=== PATIENT | female | born 2005 | race Caucasian/White ===

== ENCOUNTER 2024-03-20 06:20 | Day surgery (SDC) | payer OTHER, SELFPAY ==
[2024-03-20] VITALS (12 sets, daily range): BP systolic 108–131; BP diastolic 64–86; BMI 20.6
[2024-03-20 10:58] LABS: HCG, Urine Qualitative Screen Negative
[2024-03-20] MEDS: NORMOSOL-R 1000 IV (11:11)
[2024-03-20] MEDS: DILAUDID 0.25 MG IV (13:10)
== END 2024-03-20 14:20 | disposition home or self-care (01) ==
LOC: SDS 06:20
PROVIDERS: ATTENDING PHYSICIAN Otolaryngology
DX: J35.1 Hypertrophy of tonsils (principal); J03.91 Acute recurrent tonsillitis, unspecified
CPT/HCPCS: 42826; 88304; 81025

== ENCOUNTER 2024-03-25 04:12 | Emergency (ER) | payer OTHER, SELFPAY ==
[2024-03-25 04:14] VITALS: BP 114/86
--- NOTE | 2024-03-25 04:27 | ED.GENMED ---
History of Present Illness
<JER Baltazar - Last Filed: 03/25/24 05:56>
General
Chief Complaint: Post Operative Problem(s)
Source: family (pt's father )
Exam Limitations: clinical condition (pt non-verbal following recent BL tonsillectomy )
Time Seen by Provider: 03/25/24 04:27
Nursing documentation reviewed up to this point in time: agreed with
History of Present Illness
History of Present Illness:
18 year old female presents for evaluation of a post operative problem. Pt underwent BL tonsillectomy on 03/20 having difficulty speaking due to post-op pain so father is providing history today. Father notes that pt began exhibiting intermittent
spotty oral bleeding approximately 3 hours ago. Pt has been avoiding swallowing due to pain, so father reports that when pt spits she has been exhibiting blood-streaked sputum. Father also endorses decreased oral intake since pt's surgery, and adds
that pt is mildly dehydrated as a result. Pt currently on Amoxicillin following the procedure. No fever, chills, N/V, lightheadedness/dizziness, syncope, SOB, or CUTLER.
Review of Systems
<JER Baltazar - Last Filed: 03/25/24 05:56>
Review of Systems
Allergies reviewed?: Yes
Constitutional: Reports no symptoms
EENT: Reports sore throat, mouth pain and other (intermittent bleeding from BL tonsillectomy surgical site )
Respiratory: Reports no symptoms
Cardiac: Reports no symptoms
ABD/GI: Reports no symptoms
Musculoskeletal: Reports no symptoms
Skin: Reports no symptoms
Neurological: Reports no symptoms
Hematologic/Lymphatic: Reports bleeding
Phy Exam
<JER Baltazar - Last Filed: 03/25/24 05:56>
General Physical Exam
General Presentation: well appearing
General age: appears stated age
General Skin: warm
General Habitus: normal
General Mental: alert
General Hydration: dry mucous membranes
ENT Exam
ENT Exam: EOMI, neck supple, pharyngeal erythema and other (pain with swallowing )
Cardiovascular Exam
Cardiovascular Exam: regular rate/rhythm
Pulmonary Exam
Pulmonary Exam: lungs clear and no respiratory distress
Neurological Exam
Neurological Exam: alert and oriented x3
Musculoskeletal Exam
Musculoskeletal Exam: other (no neck pain )
Skin Exam
Skin Exam: normal color
Course
<JER Baltazar - Last Filed: 03/25/24 05:56>
Orders/Labs/Results
Orders:
Orders
03/25/24 04:54
0.9% Sodium Chloride 1000 ml [Nss] 1,000 ml IV BOLUS
03/25/24 05:01
Complete Blood Count/With Diff Stat
Comprehensive Metabolic Panel Urgent
Abnormal Lab Results
03/25/24
05:01
MCH 31.9 H pg
(27.0-31.0)
Absolute Monos (auto) 0.7 H 10^3/uL
(0.1-0.6)
Monocytes % 11.5 H %
(1.7-9.3)
BUN 18 H mg/dl
(7-17)
Glucose 112 H mg/dl
(70-99)
03/25/24 05:01
03/25/24 05:01
Vital Signs
Initial and Last Documented VS:
Initial Vital Signs
Temp Pulse Resp BP Pulse Ox
99 F 148 24 114/86 98
03/25/24 04:14 03/25/24 04:14 03/25/24 04:14 03/25/24 04:14 03/25/24 04:14
Last Documented Vital Signs
Temp Pulse Resp BP Pulse Ox
99 F 148 24 114/86 98
03/25/24 04:14 03/25/24 04:14 03/25/24 04:14 03/25/24 04:14 03/25/24 04:33
<Roger Barroso DO - Last Filed: 03/25/24 05:37>
Orders/Labs/Results
Orders:
Orders
03/25/24 04:54
0.9% Sodium Chloride 1000 ml [Nss] 1,000 ml IV BOLUS
03/25/24 05:01
Complete Blood Count/With Diff Stat
Comprehensive Metabolic Panel Urgent
Abnormal Lab Results
03/25/24
05:01
MCH 31.9 H pg
(27.0-31.0)
Absolute Monos (auto) 0.7 H 10^3/uL
(0.1-0.6)
Monocytes % 11.5 H %
(1.7-9.3)
BUN 18 H mg/dl
(7-17)
Glucose 112 H mg/dl
(70-99)
03/25/24 05:01
03/25/24 05:01
Vital Signs
Initial and Last Documented VS:
Initial Vital Signs
Temp Pulse Resp BP Pulse Ox
99 F 148 24 114/86 98
03/25/24 04:14 03/25/24 04:14 03/25/24 04:14 03/25/24 04:14 03/25/24 04:14
Last Documented Vital Signs
Temp Pulse Resp BP Pulse Ox
99 F 148 24 114/86 98
03/25/24 04:14 03/25/24 04:14 03/25/24 04:14 03/25/24 04:14 03/25/24 04:33
<JER Baltazar - Last Filed: 03/25/24 05:56>
MDM/Problems Addressed
Differential Diagnosis Includes:
Post-operative hemorrhage following tonsillectomy
<JER Baltazar - Last Filed: 03/25/24 05:56>
*Critical Care Note
Total Time (30-74mins, 75-104mins- exclusive of procedures): Not Applicable
ED Attending Note
<JER Baltazar - Last Filed: 03/25/24 05:56>
-
Portions of this chart may have been created with voice recognition software.� Occasional wrong word or��sound alike� substitutions may have occurred due to the inherent limitations of voice recognition software.
<Roger Barroso DO - Last Filed: 03/25/24 05:37>
ED Attending Note
Patient seen and examined by attending physician: Yes
I performed the substantive portion of visit, reviewed & personally made and approve the management plan that is documented in note by myself or LAWRENCE.: Yes
ED Attending Note:
Pleasant 18-year-old female on day 6 status post tonsillectomy by Dr. Isaacs had some bleeding tonight. She states that the bleeding slowed down by the time she got here. She was having difficulty drinking. Patient has refused pain medication.
Father reports some spotty blood on expiratory wheezing. Currently patient has no other complaints. She is on amoxicillin. Patient was seen in conjunction with the PA student. I have reviewed and agree with the history and treatment plan
presented. On my independent physical exam, patient is awake, alert, and oriented x3, minimal acute distress. Oropharynx is clear. There is some bright red blood on the tonsillar pillars. There is some scarring and scabbing present. There is no
active extravasation. Patient refuses pain medication. Patient to be discharged home.
Discharge Plan
Departure
Patient Disposition: Home (Routine Discharge)
Date of Disposition: 03/25/24
Time of Disposition: 05:36
Patient with high blood pressure during this ER visit?: Yes
Discharge Problem:
Postoperative hemorrhage of tonsil
Instructions: Bleeding After Surgery
Prescriptions:
No Action
acetaminophen [Tylenol] 325 mg Tablet
650 mg PO Q4H PRN (Reason: discomfort)
albuterol sulfate 90 mcg/actuation Hfa Aerosol Inhaler
1 inh INHALATION PRN PRN (Reason: asthma)
cetirizine [Zyrtec] 10 mg Tablet
10 mg PO DAILY PRN (Reason: allergies)
diphenhydramine HCl [Benadryl] 25 mg Capsule
25 mg PO TID PRN (Reason: allergies)
Referrals:
Manoj Hayes MD [Active] - Keep scheduled appt
Soni Goetz CRNP [Family Provider] -
Interventions
Interventions:
*Risk Screen - Suicide Last Done: 03/25/24 04:14
*General Assessment Last Done: 03/25/24 04:33
*Neglect/Abuse Screening Last Done: 03/25/24 04:14
ED- Fall Risk Assessment Last Done: 03/25/24 04:33
*ED COVID-19 Vaccine History Last Done: 03/25/24 04:33
ED-EENT Assessment Last Done: 03/25/24 04:33
ED- Pulmonary Assessment Last Done: 03/25/24 04:33
ED-Skin Assessment Last Done: 03/25/24 04:33
Discharge Date and Time
Print Language: [id number]
[2024-03-25] MEDS: NSS 1000 IV (04:55)
[2024-03-25 05:13] LABS: % Basophils 0.5 % (0-2); % Eosinophils 3.9 % (0-6); % Immature Granulocytes 0.2 % (0-0.5); % Lymphocytes 21.1 % (20.5-51.1); % Monocytes 11.5 % (1.7-9.3); % Neutrophils 62.8 % (42.2-75.2); Absolute Eosinophils 0.3 10^3/uL (0-0.7); Absolute Lymphocytes 1.4 10^3/uL (1.2-3.4); Absolute Monocytes 0.7 10^3/uL (0.1-0.6); Absolute Neutrophils 4.1 10^3/uL (1.4-6.5); Hematocrit 38.5 % (37.0-47.0); Hemoglobin 13.7 g/dL (12.0-16.0); Mean Corp Hgb Conc. 35.6 g/dL (33.0-37.0); Mean Corpuscular Hgb 31.9 pg (27.0-31.0); Mean Corpuscular Volume 89.5 fL (81.0-99.0); Mean Platelet Volume 10.1 fL (7.4-10.4); Nucleated Red Blood Cells % 0 %; Platelet Count 257 10^3/uL (130-400); Red Cell Dist. Width 11.7 % (11.5-14.5); White Blood Cell Count 6.4 10^3/uL (4.8-10.8)
[2024-03-25 05:29] LABS: ALT (SGPT) 11 U/L (0-35); AST (SGOT) 19 U/L (14-36); Albumin 4.9 g/dl (3.5-5.0); Alkaline Phosphatase 73 U/L (38-126); Blood Urea Nitrogen 18 mg/dl (7-17); Calcium 10.2 mg/dl (8.4-10.2); Carbon Dioxide 24 mmol/L (22-30); Chloride 102 mmol/L (98-107); Glucose 112 mg/dl (70-99); Sodium 143 mmol/L (135-145); Total Protein 7.9 g/dl (6.3-8.2); eGFR > 60.00
[2024-03-25 06:00] VITALS: BP 117/79
== END 2024-03-25 06:00 | disposition home or self-care (01) ==
LOC: EMR 04:12
PROVIDERS: EMERGENCY PHYSICIAN Student in an Organized Health Care Education/Training Program; FAMILY PHYSICIAN Nurse Practitioner
DX: K91.841 Postprocedural hemorrhage of a digestive system organ or structure following other procedure (principal); Z79.2 Long term (current) use of antibiotics; Z85.72 Personal history of non-Hodgkin lymphomas
CPT/HCPCS: 99283; 96360; 80053; 85025

== ENCOUNTER 2024-03-26 14:31 | Day surgery (SDC) | payer OTHER, SELFPAY ==
[2024-03-26] VITALS (12 sets, daily range): BP systolic 103–140; BP diastolic 64–82; BMI 19.0
--- NOTE | 2024-03-26 13:46 | EDRN ---
the pt was brought back to ED Bed 11 from triage, after the triage nurse asked her questions she coughed and then started to cough up blood, the pt is AAO, the pt is tearful, pt being hooked to the monitor, Dr. Perez, Rock Combs, and Dr. Tabor brought
to the pts bedside
--- NOTE | 2024-03-26 13:48 | EDRN ---
the pt continues to cough up blood, PIV being placed, labs being drawn
--- NOTE | 2024-03-26 13:52 | EDRN ---
OR being notified of the pt, Dr. Perez currently still at the pts bedside, NST in the 120-140's, the pt is currently on 5L NC Sp02 99%, anesthesia paged and at the bedside as well as respiratory
[2024-03-26 13:55] LABS: % Basophils 0.4 % (0-2); % Eosinophils 1.2 % (0-6); % Immature Granulocytes 0.4 % (0-0.5); % Lymphocytes 11.5 % (20.5-51.1); % Monocytes 8.4 % (1.7-9.3); % Neutrophils 78.1 % (42.2-75.2); Absolute Basophils 0.1 10^3/uL (0-0.2); Absolute Eosinophils 0.2 10^3/uL (0-0.7); Absolute Immature Granulocytes 0.1 10^3/uL (0-0.05); Absolute Monocytes 1.4 10^3/uL (0.1-0.6); Absolute Neutrophils 13.3 10^3/uL (1.4-6.5); Hematocrit 37.7 % (37.0-47.0); Hemoglobin 13.1 g/dL (12.0-16.0); Mean Corp Hgb Conc. 34.7 g/dL (33.0-37.0); Mean Corpuscular Hgb 31.3 pg (27.0-31.0); Nucleated Red Blood Cells % 0 %; Platelet Count 378 10^3/uL (130-400); Red Blood Cell Count 4.19 10^6/uL (4.20-5.40); Red Cell Dist. Width 11.9 % (11.5-14.5); White Blood Cell Count 17.1 10^3/uL (4.8-10.8)
[2024-03-26] MEDS: TRANEXAMIC ACID 100 IV (13:55)
[2024-03-26] MEDS: NSS 1000 IV (13:56)
--- NOTE | 2024-03-26 13:56 | EDRN ---
the pt is currently still on 5L NC Sp02 99%, the pt is AAO, the pt is pale with c/o dizziness, IVF hung and running along with TXA IV running, VS WNL, HR still in the 110's
--- NOTE | 2024-03-26 13:57 | EDRN ---
when in triage it was noted that the pt coughed up a total of 250cc of blood so far, provider aware
[2024-03-26] MEDS: TRANEXAMIC ACID 1000 MG INH (13:58)
--- NOTE | 2024-03-26 13:58 | EDRN ---
pt receiving TXA inhalation, now, mouth being suctioned with yankauer, the pt is currently still AAO, able to answer questions appropriately, the pts father is currently still at the pts bedside
--- NOTE | 2024-03-26 14:03 | EDRN ---
the OR called this RN to receive report, this RN gave the OR verbal report, the pt was undressed and placed in a gown and belongings were placed in belongings bag
--- NOTE | 2024-03-26 14:06 | ED.GENMED ---
History of Present Illness
General
Chief Complaint: Post Operative Problem(s)
Source: patient and family
Exam Limitations: none
Time Seen by Provider: 03/26/24 14:05
History of Present Illness
History of Present Illness:
Patient with a tonsillectomy done March 20. Has had some intermittent mild post tonsillar bleeding but became severe today and very severe in the waiting room. No other medical issues.
Past History
Past History
ED Past Medical History: Asthma
ED Past Surgical History: Tonsilectomy and Other ([place] teeth)
Review of Systems
Review of Systems
All Other Systems: Not applicable
Constitutional: Denies fever
Phy Exam
Physical Exam
Physical Exam:
GENERAL: Alert. Pale. Tachycardic. Holding an emesis bag with significant blood and clots in the emesis and in her oral airway. Some drooling. No stridor.
EYE: Orbits normal.
NECK: Supple
ENT: Diffuse intraoral blood and clots.
CARDIAC: Tachycardic and regular no murmur
LUNGS: Clear breath sounds,normal
NEUROLOGICAL: Alert and oriented , grossly non-focal
SKIN: Pale
MUSCULOSKELETAL: No edema,no deformity.Good color
PSYCH: Anxious
Course
Orders/Labs/Results
Orders:
Orders
03/26/24 13:48
Tranexamic Acid 1,000 mg INH NOW STA
03/26/24 13:49
Type+Screen Urgent
Complete Blood Count/With Diff Urgent
Comprehensive Metabolic Panel Urgent
Tranexamic Acid 1000 mg/100 ml [Tranexamic Acid] 1,000 mg in 100 ml IV ONCE
03/26/24 13:55
0.9% Sodium Chloride 1000 ml [Nss] 1,000 ml IV BOLUS
Tranexamic Acid 1,000 mg .ROUTE .[facility]
03/26/24 14:03
HYDROmorphone [Dilaudid] 0.25 mg IV PACU-Q5MPRN PRN
HYDROmorphone [Dilaudid] 0.5 mg IV PACU-Q5MPRN PRN
Meperidine [Demerol] 12.5 mg IV PACU-Q5MPRN PRN
Ondansetron Injectable [Zofran] 4 mg IV PACU-ONCEPRN PRN
Prochlorperazine [Compazine] 5 mg IV PACU-ONCEPRN PRN
Notify MD As Directed
Notify physician if: for SDS patients with known or suspected sleep obstructive sleep apnea, monitor in the
PACU.
Notify MD for any apneic/desaturation episodes
O2 Therapy [RESP] Urgent
Titrate/Wean O2 to maintain O2 sat greater than (%): 92
Special Instructions: -Provide supplemental oxygen to achieve O2 sat of 92% or greater.
-After 15 min, may wean O2 and discontinue if patient is able to maintain O2 sat of 92%
or greater during recovery period.
If patient is a discharge home, without oxygen therapy, notify anestheiologist if
unable to maintain O2 SAT of 92% or greater on room air for MD clearance.
03/26/24 14:11
Dexamethasone Sod Phosphate [Decadron] 20 mg .ROUTE .[facility]
Fentanyl Citrate/Pf [Sublimaze] 100 mcg .ROUTE .[facility]
Lidocaine HCl/Pf [Xylocaine-Mpf 1% Vial] 50 mg .ROUTE .[facility]
Ondansetron Injectable [Zofran] 4 mg .ROUTE .[facility]
Propofol [Diprivan] 20 ml .ROUTE .[facility]
Rocuronium [place] [Rocuronium] 50 mg .ROUTE .[facility]
03/26/24 14:12
Midazolam HCl [Versed] 2 mg .ROUTE .[facility]
03/26/24 14:15
Normosol (Mult Electrolytes) [Normosol-R] 1,000 ml IV PER PROTOCOL
03/26/24 14:20
Bupivacaine Mpf 0.25% [Sensorcaine-Mpf 0.25% Vial] 30 ml .ROUTE .[facility] ONE
03/26/24 14:42
Sugammadex Sodium [Bridion] 200 mg .ROUTE .[facility]
03/26/24 15:09
H&H Stat
Comment: post op check
Abnormal Lab Results
03/26/24
13:49
WBC 17.1 H 10^3/uL
(4.8-10.8)
RBC 4.19 L 10^6/uL
(4.20-5.40)
MCH 31.3 H pg
(27.0-31.0)
Abs Immat Gran (auto) 0.1 H 10^3/uL
(0-0.05)
Absolute Neuts (auto) 13.3 H 10^3/uL
(1.4-6.5)
Absolute Monos (auto) 1.4 H 10^3/uL
(0.1-0.6)
Neutrophils % 78.1 H %
(42.2-75.2)
Lymphocytes % 11.5 L %
(20.5-51.1)
Carbon Dioxide 19 L mmol/L
(22-30)
Glucose 104 H mg/dl
(70-99)
Total Protein 8.4 H g/dl
(6.3-8.2)
03/26/24 13:49
Vital Signs
Initial and Last Documented VS:
Initial Vital Signs
Pulse Resp BP Pulse Ox
99 24 121/80 92
03/26/24 13:39 03/26/24 13:39 03/26/24 13:39 03/26/24 13:39
Last Documented Vital Signs
Pulse Resp BP Pulse Ox
133 20 116/78 99
03/26/24 14:00 03/26/24 14:00 03/26/24 14:00 03/26/24 14:00
MDM/Problems Addressed
Differential Diagnosis Includes:
Patient with a significant post tonsillar bleed. 2 IVs. Labs. TXA IV and inhaled. ENT contacted immediately. Prolonged monitoring in the room. I elected to get anesthesia involved and in case she needed emergent intubation. She however did
stabilize somewhat prior to going up to the operating room. Family updated.
*Critical Care Note
Total Time (30-74mins, 75-104mins- exclusive of procedures): 20
ED Attending Note
-
Portions of this chart may have been created with voice recognition software.� Occasional wrong word or��sound alike� substitutions may have occurred due to the inherent limitations of voice recognition software.
Discharge Plan
Departure
Patient Disposition: Admit
Date of Disposition: 03/26/24
Time of Disposition: 14:10
Presentation/result/management discussed w/ accepting MD/DO: Rey
Discharge Problem:
Severe post tonsillectomy bleeding
Interventions
Interventions:
*Risk Screen - Suicide Last Done: 03/26/24 13:50
*General Assessment Last Done: 03/26/24 13:39
*Neglect/Abuse Screening Last Done: 03/26/24 13:39
ED- Fall Risk Assessment Last Done: 03/26/24 13:50
*ED COVID-19 Vaccine History Last Done: 03/26/24 13:50
*Nursing Disposition Last Done: 03/26/24 14:20
ED-Skin Assessment Last Done: 03/26/24 13:50
Discharge Date and Time
Discharge Date/Time: 03/26/24 14:21
[2024-03-26 14:11] LABS: ALT (SGPT) 14 U/L (0-35); AST (SGOT) 20 U/L (14-36); Alkaline Phosphatase 80 U/L (38-126); Blood Urea Nitrogen 16 mg/dl (7-17); Calcium 9.8 mg/dl (8.4-10.2); Carbon Dioxide 19 mmol/L (22-30); Chloride 106 mmol/L (98-107); Estimated Creatinine Clearance 119 ml/min; Glucose 104 mg/dl (70-99); Sodium 145 mmol/L (135-145); Total Bilirubin 0.7 mg/dl (0.2-1.3); Total Protein 8.4 g/dl (6.3-8.2); eGFR > 60.00
[2024-03-26 15:46] LABS: Hematocrit 27.9 % (37.0-47.0); Hemoglobin 9.6 g/dL (12.0-16.0)
[2024-03-26] MEDS: XOPENEX 1.25 MG INHALANT SOLUTION INH (15:48)
[2024-03-26] MEDS: OFIRMEV 100 IV (16:14)
== END 2024-03-26 17:40 | disposition home or self-care (01) ==
LOC: PACU 14:31
PROVIDERS: ATTENDING PHYSICIAN Otolaryngology; EMERGENCY PHYSICIAN Emergency Medicine
DX: J95.830 Postprocedural hemorrhage of a respiratory system organ or structure following a respiratory system procedure (principal); Z98.890 Other specified postprocedural states
CPT/HCPCS: 42960; 80053; 85014; 85018; 85025; 86850; 86900; 86901; 94640; 96365; 99285

== ENCOUNTER → 2024-04-29 10:08 | Outpatient (REF) | payer OTHER, SELFPAY | LOC: RCS 10:08 | PROVIDERS: ATTENDING PHYSICIAN Internal Medicine Cardiovascular Disease; FAMILY PHYSICIAN Nurse Practitioner | DX: Z87.898 Personal history of other specified conditions (principal); R00.2 Palpitations | CPT/HCPCS: 93306 ==